=== PATIENT | female | born 1995 | race Hispanic/Latino ===

== ENCOUNTER → 2016-07-19 | Outpatient (CLI) | payer OTHER ==
--- OUTSIDE RECORDS SUMMARY | 2016-07-19 11:08 | XMS REPORT | Continuity of Care Document ---
Author Author [facility] Organization [facility] Address Unknown Phone Unavailable Allergies Medications Problems Procedures Results Encounters ACCT No. Visit Date/Time Discharge Status Pt. Type Provider Facility Loc./Unit Complaint [id number] 01/19/2013 12:48:00 2012 23:59:59 CLS Outpatient [id number] 01/14/2013 12:10:00 2012 23:59:59 CLS Outpatient
[2016-07-19 11:41] LABS: BASOPHILS % (AUTO) 0 % (0-10); EOSINOPHILS # (AUTO) 0.1 10^3/uL (0.0-0.3); EOSINOPHILS % (AUTO) 1 % (0-10); LYMPHOCYTES % (AUTO) 35 % (12-44); MEAN CORPUSCULAR HEMOGLOBIN 30 PG (25-34); MEAN CORPUSCULAR HGB CONC 35 G/DL (32-36); MEAN CORPUSCULAR VOLUME 86 FL (80-99); MONOCYTES # (AUTO) 0.4 X 10^3 (0.0-1.0); MONOCYTES % (AUTO) 5 % (0-12); NEUTROPHILS # (AUTO) 5.1 X 10^3 (1.8-7.8); NEUTROPHILS % (AUTO) 60 % (42-75); PLATELET COUNT 413 10^3/uL (130-400); RED BLOOD COUNT 4.55 10^6/uL (4.35-5.85); RED CELL DISTRIBUTION WIDTH 12.6 % (10.0-14.5); WHITE BLOOD COUNT 8.6 10^3/uL (4.3-11.0)
[2016-07-19 12:06] LABS: ALANINE AMINOTRANSFERASE 15 U/L (0-55); ALBUMIN 4.1 G/DL (3.2-4.5); ANION GAP 10 MMOL/L (5-14); ASPARTATE AMINO TRANSFERASE 19 U/L (5-34); BILIRUBIN,TOTAL 0.3 MG/DL (0.1-1.0); BLOOD UREA NITROGEN 10 MG/DL (7-18); BUN/CREATININE RATIO 16; CALCIUM 9.4 MG/DL (8.5-10.1); CARBON DIOXIDE 22 MMOL/L (21-32); CHLORIDE 104 MMOL/L (98-107); CHOLESTEROL 203 MG/DL (< 200); CREATININE SERUM 0.63 MG/DL (0.60-1.30); DIRECT LDL 120 MG/DL (1-129); GFR ESTIMATED > 60; GLUCOSE 86 MG/DL (70-105); POTASSIUM 3.9 MMOL/L (3.6-5.0); SODIUM 136 MMOL/L (135-145); TOTAL PROTEIN 7.7 G/DL (6.4-8.2); TRIGLYCERIDES 372 MG/DL (<150); VLDL CHOLESTEROL 74 MG/DL (5-40)
[2016-07-19 12:30] LABS: THYROID STIMULATING HORMONE 1.39 UIU/ML (0.35-4.94)
== END ==
LOC: LAB 11:03
PROVIDERS: ATTEND Nurse Practitioner Family
DX: Z00.00 Encounter for general adult medical examination without abnormal findings (principal); Z83.3 Family history of diabetes mellitus
CPT/HCPCS: 36415; 80053; 80061; 83036; 84439; 84443; 85025

== ENCOUNTER → 2017-07-24 | Outpatient (CLI) | payer OTHER ==
--- NOTE | 2017-07-24 10:37 | Diagnostic Imaging Report ---
INDICATION: Possible scoliosis. TIME OF EXAM: 9:32 AM FINDINGS: There is mild scoliotic curvature identified in the thoracic and lumbar spine. Very slight left convexity scoliotic curvature in the midthoracic spine is seen measured from the superior endplate of T4 to the inferior endplate of T7 measures 5 degrees. Slight lower thoracic right convexity scoliotic curvature is noted measuring 10 degrees. There is minimal left convexity lumbar scoliotic curvature measuring 10 degrees. No vertebral body anomaly is identified. The pedicles are unremarkable. Questionable staghorn calculus overlying the right renal shadow is again noted. IMPRESSION: 1. Mild thoracolumbar scoliosis. No vertebral body anomaly is detected. 2. Questionable right-sided staghorn calculus. CT of the urinary tracts could be performed for further evaluation, if clinically indicated. Dictated by: Dictated on workstation # [id number]
--- NOTE | 2017-07-24 13:00 | Diagnostic Imaging Report ---
Indication: Left-sided abdominal pain for 3 years. Time of exam: 9:53 AM Findings: Very slight left convexity lumbar scoliotic curvature is noted. The bowel gas pattern is nonobstructive. There is a calcific density in the right midabdomen overlying the right renal shadow measuring approximately 17 mm in size. These may represent a staghorn calculus. No other radiopaque urinary tract calculi are seen. No free air is identified. Impression: Findings suspicious for staghorn calculus right kidney. CT of the urinary tract could be performed for further evaluation. Dictated by: Dictated on workstation # [id number]
== END ==
LOC: RAD 09:09
PROVIDERS: ATTEND Nurse Practitioner Family
DX: M41.85 Other forms of scoliosis, thoracolumbar region (principal); R10.9 Unspecified abdominal pain
CPT/HCPCS: 72081; 74019

== ENCOUNTER → 2017-07-25 | Outpatient (CLI) | payer OTHER ==
--- NOTE | 2017-07-25 11:35 | Diagnostic Imaging Report ---
PROCEDURE: CT urinary tract, rule out kidney stone. TECHNIQUE: Multiple contiguous axial images were obtained through the abdomen and pelvis without the use of intravenous contrast. INDICATION: Right-sided pain. Possible stone. COMPARISON: None FINDINGS: The lung bases are clear. The liver, gallbladder, pancreas, spleen and adrenal glands appear unremarkable. The left kidney and ureter appear unremarkable. There is a 1.5 cm staghorn calculus in the right kidney in the mid and lower pole. No obstructive change is seen. The right ureter appears unremarkable. Mild thickening of the bladder wall may be due to incomplete distention. The appendix is mildly prominent in caliber but otherwise unremarkable. No focal inflammatory process is seen. There is no free fluid, free air or adenopathy. Uterus appears unremarkable. There is mild prominence of the right adnexa, an underlying cyst or mass cannot be entirely excluded. Pelvic ultrasound may be of additional benefit. No evidence of bowel obstruction. The abdominal aorta appears normal in caliber. No acute osseous abnormality is seen. IMPRESSION: 1. There is a large staghorn calculus in the right kidney. No obstructive changes are seen. 2. Moderate prominence of the right adnexa, an underlying mass cannot be entirely excluded. Pelvic ultrasound is suggested for further evaluation. 3. No additional abnormality is demonstrated. Dictated by: Dictated on workstation # [id number]
== END ==
LOC: RAD 10:23
PROVIDERS: ATTEND Nurse Practitioner Family
DX: N20.0 Calculus of kidney (principal)
CPT/HCPCS: 74176

== ENCOUNTER → 2017-07-28 | Outpatient (CLI) | payer OTHER ==
--- NOTE | 2017-07-28 17:33 | Diagnostic Imaging Report ---
INDICATION: Possible mass. COMPARISON: CT scan dated 07/25/2017. TECHNIQUE: Real-time grayscale and color Doppler ultrasound of the pelvis is performed transabdominally and endovaginally. FINDINGS: The uterus measures 5.1 cm x 3.3 cm x 2.7 cm. Endometrium measures about 3 mm. The right ovary measures 2.4 cm x 3.9 cm x 1.3 cm. There is a 1.3 cm cyst or follicle in the right ovary. The left ovary measures 2.3 cm x 1.3 cm x 2.7 cm. It appears unremarkable. Multiple follicles are present bilaterally. Doppler imaging demonstrates normal flow to both ovaries. There is no free fluid. IMPRESSION: There is a 1.7 cm dominant follicle or cyst in the right ovary which may account for prominence seen on recent CT. No acute abnormality is demonstrated. Dictated by: Dictated on workstation # [id number]
== END ==
LOC: RAD 14:44
PROVIDERS: ATTEND Nurse Practitioner Family
DX: N83.8 Other noninflammatory disorders of ovary, fallopian tube and broad ligament (principal)
CPT/HCPCS: 76830; 76856

== ENCOUNTER → 2017-07-29 | Outpatient (CLI) | payer OTHER ==
--- NOTE | 2017-07-29 13:21 | Diagnostic Imaging Report ---
INDICATION: Right kidney stone. TIME OF EXAMINATION: 1:33 PM. COMPARISON: 07/24/2017. FINDINGS: A staghorn calculus in the right kidney is similar to the prior study. The bowel gas pattern is nonobstructive. No definite ureteral calculi are detected. IMPRESSION: Stable appearance to the staghorn calculus in the right kidney when compared with the examination from 5 days earlier. Dictated by: Dictated on workstation # [id number]
== END ==
LOC: RAD 12:43
PROVIDERS: ATTEND Nurse Practitioner Family
DX: N20.0 Calculus of kidney (principal)
CPT/HCPCS: 74018

== ENCOUNTER 2017-08-06 06:14 | Outpatient (CLI) | payer OTHER ==
[~2017-08-06] VITALS: Ht 147.3 cm; Wt 60.8 kg
[2017-08-06] MEDS ORDERED: bcp PO (12:11)
== END 2017-08-06 13:51 ==
LOC: PREOP 06:14
PROVIDERS: ATTEND Urology
DX: Z01.818 Encounter for other preprocedural examination (principal); N20.0 Calculus of kidney

== ENCOUNTER 2017-08-12 06:01 | Day surgery (SDC) | payer OTHER ==
[~2017-08-12] VITALS: Ht 147.3 cm; Wt 60.8 kg
[~2017-08-12 06:01] MED LIST: bcp PO
--- OUTSIDE RECORDS SUMMARY | 2017-08-12 06:04 | XMS REPORT | Continuity of Care Document ---
Author Author [facility] Organization [facility] Address Unknown Phone Unavailable Allergies Active Description Code Type Severity Reaction Onset Reported/Identified Relationship to Patient Clinical Status Yes No Known Drug Allergies [id number] Drug Allergy Unknown N/A 09/21/2010 Medications There is no data. Problems Date Dx Coded Attending Type Code Diagnosis Diagnosed By 07/19/2016 VALDO KELLER, SOPHIA Peters Ot 959.7 LOWER LEG INJURY NOS 07/19/2016 VALDO KELLER, SOPHIA Peters Ot E000.8 OTHER EXTERNAL CAUSE STATUS 07/19/2016 VALDO KELLER, SOPHIA Peters Ot E007.5 ACTIVITIES INVOLVING SOCCER 07/19/2016 SOPHIA LYLE MD Ot E928.9 ACCIDENT NOS 07/19/2016 VALDO KELLER, SOPHIA Peters Ot 924.11 CONTUSION OF KNEE 07/19/2016 VALDO KELLER, SOPHIA Peters Ot E000.8 OTHER EXTERNAL CAUSE STATUS 07/19/2016 SOPHIA LYLE MD Ot E007.5 ACTIVITIES INVOLVING SOCCER 07/19/2016 VALDO KELLER, SOPHIA Peters Ot E928.9 ACCIDENT NOS 07/22/2016 ONNA MCFADDEN Ot Z00.00 ENCNTR FOR GENERAL ADULT MEDICAL EXAM W/ 07/22/2016 NONA MCFADDEN Ot Z83.3 FAMILY HISTORY OF DIABETES MELLITUS 07/31/2016 NONA MCFADDEN Ot Z00.00 ENCNTR FOR GENERAL ADULT MEDICAL EXAM W/ 07/31/2016 NONA MCFADDEN CHILD ADOLESCENT CARE Ot Z83.3 FAMILY HISTORY OF DIABETES MELLITUS 07/25/2017 SAMANTHA KRISHNAN R EMPLOYEE REPRESENTATIVE Ot M41.85 OTHER FORMS OF SCOLIOSIS, THORACOLUMBAR 07/25/2017 EULOGIO SAMANTHA R EMPLOYEE REPRESENTATIVE Ot R10.9 UNSPECIFIED ABDOMINAL PAIN 07/25/2017 DMITRY KRISHNANON R EMPLOYEE REPRESENTATIVE Ot M41.85 OTHER FORMS OF SCOLIOSIS, THORACOLUMBAR 07/25/2017 EULOGIODMITRY CONTRERASON R EMPLOYEE REPRESENTATIVE Ot R10.9 UNSPECIFIED ABDOMINAL PAIN 07/25/2017 IRVINGKATHI NONA Lc MORROW Ot Z00.00 ENCNTR FOR GENERAL ADULT MEDICAL EXAM W/ 07/25/2017 IRVINGVINITA NONAGLENDA MORROW Ot Z83.3 FAMILY HISTORY OF DIABETES MELLITUS 07/25/2017 EULOGIODMITRYON R EMPLOYEE REPRESENTATIVE Ot M41.85 OTHER FORMS OF SCOLIOSIS, THORACOLUMBAR 07/25/2017 EULOGIO, SAMANTHA R EMPLOYEE REPRESENTATIVE Ot R10.9 UNSPECIFIED ABDOMINAL PAIN 07/29/2017 EULOGIODMITRYON R EMPLOYEE REPRESENTATIVE Ot N83.8 OTH NONINFLAMMATORY DISORD OF OVARY, FAL 07/30/2017 EULOGIODMITRYON R EMPLOYEE REPRESENTATIVE Ot N20.0 CALCULUS OF KIDNEY 08/04/2017 EULOGIO, SAMANTHA R EMPLOYEE REPRESENTATIVE Ot M41.85 OTHER FORMS OF SCOLIOSIS, THORACOLUMBAR 08/04/2017 EULOGIO, SAMANTHA R EMPLOYEE REPRESENTATIVE Ot R10.9 UNSPECIFIED ABDOMINAL PAIN 08/08/2017 EULOGIO, SAMANTHA R EMPLOYEE REPRESENTATIVE Ot N20.0 CALCULUS OF KIDNEY 08/08/2017 GRETCHEN KELLER, XU Hendrickson Ot N20.0 CALCULUS OF KIDNEY 08/08/2017 GRETCHEN KELLER, XU Hendrickson Ot Z01.818 ENCOUNTER FOR OTHER PREPROCEDURAL EXAMIN Procedures There is no data. Results Test Result Range Complete blood count (CBC) with automated white blood cell (WBC) differential - 07/19/16 11:29 Blood leukocytes automated count (number/volume) 8.6 10*3/uL 4.3-11.0 Blood erythrocytes automated count (number/volume) 4.55 10*6/uL 4.35-5.85 Venous blood hemoglobin measurement (mass/volume) 13.6 g/dL 11.5-16.0 Blood hematocrit (volume fraction) 39 % 35-52 Automated erythrocyte mean corpuscular volume 86 [foz_us] 80-99 Automated erythrocyte mean corpuscular hemoglobin (mass per erythrocyte) 30 pg 25-34 Automated erythrocyte mean corpuscular hemoglobin concentration measurement ( mass/volume) 35 g/dL 32-36 Automated erythrocyte distribution width ratio 12.6 % 10.0-14.5 Automated blood platelet count (count/volume) 413 10*3/uL 130-400 Automated blood platelet mean volume measurement 9.0 [foz_us] 7.4-10.4 Automated blood neutrophils/100 leukocytes 60 % 42-75 Automated blood lymphocytes/100 leukocytes 35 % 12-44 Blood monocytes/100 leukocytes 5 % 0-12 Automated blood eosinophils/100 leukocytes 1 % 0-10 Automated blood basophils/100 leukocytes 0 % 0-10 Blood neutrophils automated count (number/volume) 5.1 10*3 1.8-7.8 Blood lymphocytes automated count (number/volume) 3.0 10*3 1.0-4.0 Blood monocytes automated count (number/volume) 0.4 10*3 0.0-1.0 Automated eosinophil count 0.1 10*3/uL 0.0-0.3 Automated blood basophil count (count/volume) 0.0 10*3/uL 0.0-0.1 Comprehensive metabolic panel - 07/19/16 11:29 Serum or plasma sodium measurement (moles/volume) 136 mmol/L 135-145 Serum or plasma potassium measurement (moles/volume) 3.9 mmol/L 3.6-5.0 Serum or plasma chloride measurement (moles/volume) 104 mmol/L 98-107 Carbon dioxide 22 mmol/L 21-32 Serum or plasma anion gap determination (moles/volume) 10 mmol/L 5-14 Serum or plasma urea nitrogen measurement (mass/volume) 10 mg/dL 7-18 Serum or plasma creatinine measurement (mass/volume) 0.63 mg/dL 0.60-1.30 Serum or plasma urea nitrogen/creatinine mass ratio 16 NRG Serum or plasma creatinine measurement with calculation of estimated glomerular filtration rate > NRG Serum or plasma glucose measurement (mass/volume) 86 mg/dL 70-105 Serum or plasma calcium measurement (mass/volume) 9.4 mg/dL 8.5-10.1 Serum or plasma total bilirubin measurement (mass/volume) 0.3 mg/dL 0.1-1.0 Serum or plasma alkaline phosphatase measurement (enzymatic activity/volume) 95 U/L 40-136 Serum or plasma aspartate aminotransferase measurement (enzymatic activity/ volume) 19 U/L 5-34 Serum or plasma alanine aminotransferase measurement (enzymatic activity/volume ) 15 U/L 0-55 Serum or plasma protein measurement (mass/volume) 7.7 g/dL 6.4-8.2 Serum or plasma albumin measurement (mass/volume) 4.1 g/dL 3.2-4.5 Lipid 1996 panel - 07/19/16 11:29 Serum or plasma triglyceride measurement (mass/volume) 372 mg/dL <150 Serum or plasma cholesterol measurement (mass/volume) 203 mg/dL < 200 Serum or plasma cholesterol in HDL measurement (mass/volume) 36 mg/ dL 40-60 Cholesterol in LDL [mass/volume] in serum or plasma by direct assay 120 mg/dL 1-129 Serum or plasma cholesterol in VLDL measurement (mass/volume) 74 mg/ dL 5-40 Hemoglobin A1c - 07/19/16 11:29 Hemoglobin A1c 4.9 % 4.5-6.2 THYROID STIMULATING HORMONE - 07/19/16 11:29 THYROID STIMULATING HORMONE 1.39 u[iU]/mL 0.35-4.94 Serum or plasma thyroxine (T4) free measurement (mass/volume) - 07/19/16 11:29 Serum or plasma thyroxine (T4) free measurement (mass/volume) 1.03 ng/dL 0.70-1.48 Encounters ACCT No. Visit Date/Time Discharge Status Pt. Type Provider Facility Loc./Unit Complaint [id number] 08/06/2017 06:14:00 08/06/2017 13:51:00 DIS Outpatient XU GODINEZ MD [facility] PREOP RIGHT STACKHORN CALCULUS [id number] 07/29/2017 12:43:00 07/29/2017 23:59:59 CLS Outpatient SAMANTHA KRISHNAN APRN [facility] RAD RENAL CALCLULI [id number] 07/28/2017 14:44:00 07/28/2017 23:59:59 CLS Outpatient SAMANTHA KRISHNAN EMPLOYEE REPRESENTATIVE [facility] RAD POSSIBLE MASS [id number] 07/25/2017 10:23:00 07/25/2017 23:59:59 CLS Outpatient SAMANTHA KRISHNAN EMPLOYEE REPRESENTATIVE [facility] RAD RENAL CALCULI [id number] 07/24/2017 09:09:00 07/24/2017 23:59:59 CLS Outpatient SAMANTHA KRISHNAN EMPLOYEE REPRESENTATIVE [facility] RAD ABDOMINAL PAIN AND CERVICAL SPINE PAIN [id number] 07/19/2016 11:03:00 07/19/2016 23:59:59 CLS Outpatient NONA MCFADDEN [facility] ED, FAMILY DM2 [id number] 01/19/2013 12:48:00 01/19/2013 23:59:59 CLS Outpatient SOPHIA LYLE MD [facility] RAD SOCCER INJ LT KNEE, INTERIOR ROTATOR PAIN [id number] 01/14/2013 12:10:00 01/14/2013 23:59:59 CLS Outpatient SOPHIA LYLE MD [facility] RAD SOCCER INJ LT KNEE, INTERIOR ROTATOR PAIN [id number] 08/12/2017 08:00:00 PEN Abdi GODINEZ MD, XU Hendrickson [facility] SDC RIGHT STACKHORN CALCULUS
[2017-08-12] MEDS ORDERED: DEXAMETHASONE 10 MG/ML (DECADRON) 1 ML VIAL ONE (06:20)
[2017-08-12] MEDS ORDERED: ONDANSETRON 4 MG/2 ML (SDV) Z0FRAN ONE (06:20)
[2017-08-12] MEDS ORDERED: SEVOFLURANE (ULTANE) 15 ML INHAL SOLN ONE (06:20)
[2017-08-12] MEDS ORDERED: MIDAZOLAM 2 MG/2 ML (VERSED) VIAL ONE (06:20)
[2017-08-12] MEDS ORDERED: LIDOCAINE PF 2% 5 ML (XYLOCAINE) VIAL ONE (06:20)
[2017-08-12] MEDS ORDERED: proPOfol 200 MG/20 ML (DIPRIVAN) VIAL IV ONE (06:20)
[2017-08-12] MEDS ORDERED: fentaNYL INJECTION 100 MCG/2 ML AMP ONE (06:20)
[2017-08-12] MEDS ORDERED: cefTRIAXone INJECTION 1,000 MG in NS (IVPB) 100 ML IV ONE (06:30)
[2017-08-12] MEDS ORDERED: CATHETER FLUSH 10 ML SYR IV PRN (06:45)
--- NOTE | 2017-08-12 07:05 | Progress Note-Pre Operative ---
Pre-Operative Progress Note H&P Reviewed The H&P was reviewed, patient examined and no changes noted. Date Seen by Provider: Aug 12, 2017 Time Seen by Provider: 07:05 Date H&P Reviewed: Aug 12, 2017 Time H&P Reviewed: 07:05 Pre-Operative Diagnosis: RT STAGHORN RENAL STONE XU GODINEZ MD Aug 12, 2017 7:05 am
[2017-08-12] MEDS: LACTATED RINGERS 1,000 ML IV PRN ×2 (07:12→08:01)
[2017-08-12 07:41] VITALS: BP 106/76
[2017-08-12] MEDS ORDERED: PHENYLEPHRINE 100 MCG/ML 10 ML (ANESTHESIA) SYR ONE (07:41)
--- NOTE | 2017-08-12 07:43 | Discharge Inst-Urology ---
Discharge Inst-Urology Discharge Medications New, Converted, or Re-newed RX: RX on Chart Patient Instructions/Follow Up Plan Please make appointment to been seen in office Friday 08/25, KUB prior to it KUB on way home Post ESWL instructions Increase oral fluids for 48 hours and then as needed. Diet and Activity as tolerated. If questions or concerns contact your physician Or seek help at emergency department. XU GODINEZ MD Aug 12, 2017 7:43 am
--- NOTE | 2017-08-12 07:45 | Progress Note-Post Operative ---
Post-Operative Progess Note Surgeon (s)/Tax Consultant (s) Surgeon XU GODINEZ MD Tax Consultant: N/A Pre-Operative Diagnosis RT STAGHORN RENAL STONE Post-Operative Diagnosis SAME Procedure & Operative Findings Date of Procedure 08/12/17 Procedure Performed/Findings CYSTOSCOPY, INSERTION OF RT URETERAL STENT AND RT ESWL Anesthesia Type GENERAL Estimated Blood Loss Estimated blood loss (mL): N/A Specimens/Packing Specimens Removed N/A Packing: N/A XU GODINEZ MD Aug 12, 2017 7:45 am
[2017-08-12] MEDS ORDERED: KETOROLAC 30 MG/ML VIAL ONE (07:56)
[2017-08-12] MEDS ORDERED: FUROSEMIDE 40 MG/4 ML INJ (LASIX) ONE (07:56)
[2017-08-12] MEDS ORDERED: MEPERIDINE (DEMEROL) INJ 50 MG/ML ONE (08:18)
[2017-08-12] MEDS ORDERED: MEPERIDINE (DEMEROL) INJ 50 MG/ML IVP PRN (08:30)
[2017-08-12] MEDS ORDERED: HYDROmorphone (DILAUDID) 2 MG/ML VIAL IVP PRN (08:30)
[2017-08-12] MEDS ORDERED: morphine INJ 10 MG/ML 1ML (SYR OR VIAL) IVP PRN (08:30)
[2017-08-12] MEDS ORDERED: ONDANSETRON 4 MG/2 ML (SDV) Z0FRAN IVP PRN (08:30)
--- NOTE | 2017-08-12 08:47 | Diagnostic Imaging Report ---
Indication: Evaluation for lithotripsy. Comparison: 07/29/2017 Findings: 2 supine radiographic views of the abdomen were obtained. Again identified is staghorn calculus of the right kidney. There is a linear opacity extending inferiorly from the staghorn calculus, which may be on the basis of fragmented portions of the stone extending into the proximal right ureter. No other unexpected extraosseous calcifications are seen. Small bowel loops are nondistended. There is no large collection of free intraperitoneal air. Impression: 1. Persistent right-sided staghorn calculus. Again, there is a linear opacity extending inferiorly from the calculus, which may be on the basis of small fragmented stones extending into the proximal right ureter. Dictated by: Dictated on workstation # [id number]
[2017-08-12 08:55] VITALS: BP 98/53
[2017-08-12] MEDS ORDERED: GLYCOPYRROLATE 0.2 MG/ML (ROBINUL) 2 ML VIAL ONE (08:55)
[2017-08-12] MEDS ORDERED: TAMS0.4C98 PO (09:21)
[2017-08-12] MEDS ORDERED: PHEN-640 PO (09:21)
[2017-08-12] MEDS ORDERED: NITR-65 PO (09:21)
[2017-08-12] MEDS ORDERED: HYDR-3870 PO (09:21)
[2017-08-12 09:25] VITALS: BP 115/76
[2017-08-12 09:55] VITALS: BP 115/71
--- NOTE | 2017-08-12 09:59 | Diagnostic Imaging Report ---
INDICATION: Lithotripsy, renal stones. FINDINGS: Intraoperative fluoroscopy views were obtained in Surgery per Dr. Zapata. These views demonstrate a right ureteral stent in place with the superior tip overlying the renal pelvis and the distal tip overlying the bladder. A scope is in place overlying the bladder. 34 seconds of fluoroscopy time was used in Surgery. IMPRESSION: Intraoperative fluoroscopy was used during ESWL and right ureteral stent placement as above. Dictated by: Dictated on workstation # [id number]
--- NOTE | 2017-08-12 10:06 | Diagnostic Imaging Report ---
INDICATION: Post ESWL. TECHNIQUE: A KUB was obtained at 9:36 AM. COMPARISON: Same day at 7:30 AM. FINDINGS: A right ureteral stent is seen with its distal tip overlying the bladder. The stent is mostly looped in the bladder with a small amount of stent overlying the right distal ureter. Compared to the intraoperative films of earlier the same day, this appears to have pulled back. IMPRESSION: Malpositioned right ureteral stent as above with the superior tip overlying the lower ureter at the level of L5-S1. The bowel gas pattern is unremarkable. Dictated by: Dictated on workstation # [id number]
[2017-08-12] MEDS ORDERED: HYDROcodone/APAP 5 MG/325 MG (LORTAB) TAB ONE (10:08)
--- NOTE | 2017-08-12 10:14 | Anesthesia-General Post-Op ---
General Patient Condition Mental Status/LOC: Same as Preop Cardiovascular: Satisfactory Nausea/Vomiting: Absent Respiratory: Satisfactory Pain: Controlled Complications: Absent Post Op Complications Complications None Follow Up Care/Instructions Patient Instructions None needed. Anesthesia/Patient Condition Patient Condition Patient is doing well, no complaints, stable vital signs, no apparent adverse anesthesia problems. No complications reported per nursing. BOB BURTON CRNA Aug 12, 2017 10:14
[2017-08-12] MEDS ORDERED: HYDROcodone/APAP 5 MG/325 MG (LORTAB) TAB PO ONE (10:15)
[2017-08-12 10:30] VITALS: BP 115/71
--- NOTE | 2017-08-12 10:51 | OPERATIVE REPORT ---
DATE OF SERVICE: 08/12/2017 PREOPERATIVE DIAGNOSIS: Right staghorn calculus. POSTOPERATIVE DIAGNOSIS: Right staghorn calculus. OPERATION PERFORMED: Cystoscopy, insertion of right ureteral stent and right ESWL. SURGEON: Jorge Godinez MD ANESTHESIA: General. COMPLICATIONS: None. DESCRIPTION OF PROCEDURE: Under satisfactory general anesthesia, the patient laid in lithotomy position on the cystoscopy table. Genitalia were prepped and draped in usual sterile fashion. A 23-Kenyan cystoscope was introduced under vision. The bladder was normal. There was clear efflux from both sides. No foreign body, bladder tumor or stones visualized. Using the foroblique lens, I passed a 6-Kenyan 24 cm stent through the right ureteral orifice and guided fluoroscopically all the way up into the right renal pelvis, bypassing the stone. The guidewire was removed and the stent was seemed to drain nicely proximally fluoroscopically and distally endoscopically. The bladder was evacuated and the cystoscope was removed. The patient tolerated the procedure and anesthesia well and was sent to the ESWL room, put on the special table and the stone was localized. Shocks were delivered at a kV of 5, a total of 3000 shocks were delivered. There was good fragmentation of the stone. The patient received 40 mg of Lasix and 30 mg of Toradol IV at the end of the procedure. She tolerated the procedure and anesthesia well and was sent to recovery room in stable condition. PLAN: According to the results with KUBs, we will see her back in the office on 08/25/2017 with a KUB at that time and if she needs another ESWL, we will schedule her for the when the will be back here. This was fully explained to her and her preoperatively. Job ID: [id number] DocumentID: [id number] Dictated Date: 08/12/2017 07:56:53 Software Quality Automation Engineer Date: 08/12/2017 10:51:14 Dictated By: JORGE GODINEZ MD
== END 2017-08-12 10:30 | disposition home or self-care (01) ==
LOC: SDC 06:01
PROVIDERS: ATTEND Urology
DX: N20.0 Calculus of kidney (principal)
CPT/HCPCS: 74018; 84703; 87081

== ENCOUNTER → 2019-04-20 | Outpatient (CLI) | payer BC ==
[~2019-04-20] MED LIST changes: +HYDR-3870 PO; +NITR-65 PO; +PHEN-640 PO; +TAMS0.4C98 PO
--- NOTE | 2019-04-20 14:14 | Diagnostic Imaging Report ---
INDICATION: Right-sided kidney stones, follow-up. TIME OF EXAM: 12:18 p.m. COMPARISON: Correlation is made with prior radiograph from 08/25/2017. FINDINGS: Previously noted bladder stent has been removed. No radiopaque urinary tract calculi are identified on today's study. Bowel gas pattern is unremarkable. IMPRESSION: No radiopaque urinary tract calculi are detected. Dictated by: Dictated on workstation # [id number]
== END ==
LOC: RAD 09:23
PROVIDERS: ATTEND Urology
DX: Z87.442 Personal history of urinary calculi (principal)
CPT/HCPCS: 74018

== ENCOUNTER → 2023-02-25 | Outpatient (REF) | payer OTHER ==
[~2023-02-25] MED LIST changes: -TAMS0.4C98 PO; +TMSL.4C PO
--- NOTE | 2023-02-25 09:02 | Diagnostic Imaging Report ---
INDICATION: POSTITIVE T-SPOT R/O TB COMPARISON: None FINDINGS: Frontal and lateral views of the chest demonstrate normal heart size and pulmonary vascularity. The lungs are clear. There are no signs of infiltrate, pleural effusions or pneumothoraces. The visualized osseous structures show no acute abnormalities. IMPRESSION: 1. No acute process. No signs of infiltrates, effusions or pneumothoraces. Dictated by: Dictated on workstation # [id number]
== END ==
LOC: RAD 07:40
PROVIDERS: ATTEND Family Medicine
DX: R76.12 Nonspecific reaction to cell mediated immunity measurement of gamma interferon antigen response without active tuberculosis (principal)
CPT/HCPCS: 71046